=== PATIENT | male | born 1975 | race African-American/Black ===

== ENCOUNTER 2022-06-14 16:53 | Emergency (ER) | payer MEDICAID ==
[~2022-06-14] VITALS: Ht 180.3 cm; Wt 86.0 kg
[2022-06-14] MEDS ORDERED: IBUPROFEN 600MG TABLET PO ONE (17:45)
[2022-06-14 17:50] VITALS: BP 132/86
[2022-06-14] MEDS ORDERED: IBUP-2029 MT (18:51)
== END 2022-06-14 19:10 | disposition home or self-care (01) ==
LOC: ER 16:53
DX: M54.50 Low back pain, unspecified (principal); Z98.890 Other specified postprocedural states
CPT/HCPCS: 72100; 99283

== ENCOUNTER 2022-10-14 16:50 | Emergency (ER) | payer MEDICAID ==
[~2022-10-14] VITALS: Ht 177.8 cm; Wt 75.0 kg
[~2022-10-14 16:50] MED LIST: IBUP-2029 MT
[2022-10-14 16:55] VITALS: BP 130/83; PULSE 84; RESP 16; TEMP 98.1; O2SAT 100
== END 2022-10-14 17:38 | disposition left against medical advice (07) ==
LOC: ER 16:50
DX: M54.2 Cervicalgia (principal); M25.511 Pain in right shoulder; M25.512 Pain in left shoulder
CPT/HCPCS: 99283

== ENCOUNTER 2022-10-16 13:19 | Emergency (ER) | payer MEDICAID ==
[~2022-10-16] VITALS: Ht 180.3 cm; Wt 96.0 kg
[2022-10-16 13:35] VITALS: O2SAT 100
[2022-10-16] MEDS ORDERED: METH-653 MT (14:52)
[2022-10-16 15:05] VITALS: BP 137/84; PULSE 82; RESP 18; TEMP 98.1
== END 2022-10-16 15:06 | disposition home or self-care (01) ==
LOC: ER 13:40
DX: M54.2 Cervicalgia (principal); M54.9 Dorsalgia, unspecified
CPT/HCPCS: 99283